=== PATIENT | male | born 2000 | race Caucasian/White ===

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

== ENCOUNTER 2023-01-28 00:01 | Emergency (ER) | payer BC, MEDICAID, SELFPAY ==
[2023-01-28 00:03] VITALS: BP 135/92; PULSE 108; RESP 24; O2SAT 98; BMI 18.1
--- NOTE | 2023-01-28 00:08 | ECG_ITS ---
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 Measurements Intervals [place] Rate: 110 P: 78 [place]: 142 QRS: 91 QRSD: 94 T: 50 QT: 308 QTc: 417 Interpretive Statements SINUS TACHYCARDIA BORDERLINE RIGHT AXIS DEVIATION [QRS AXIS > 90] INCOMPLETE RIGHT BUNDLE BRANCH BLOCK [90+ ms QRS DURATION, TERMINAL R IN V1/V2, 40+ ms S IN I/aVL/V4/V5/V6] ABNORMAL RHYTHM ECG No previous ECG available for comparison Electronically Signed On 01-28-2023 11:41:55 CDT by Edmund Narvaez M.D. [email or web address]
[2023-01-28 00:18] VITALS: BP 135/92; PULSE 105; RESP 25; O2SAT 98
[2023-01-28 00:18] LABS: Basophils % 0.7 %; Eosinophils # 0.1 10^3/uL (0.0-0.8); Eosinophils % 1.5 %; Hematocrit 49.3 % (42.0-52.0); Hemoglobin 16.4 g/dL (11.7-16.6); Lymphocytes # 1.6 10^3/uL (1.5-6.5); Lymphocytes % 34.1 %; Mean Corpuscular HGB Conc 33.3 g/dL (30.0-36.0); Mean Corpuscular Hemoglobin 28.9 pg (28.0-34.0); Mean Corpuscular Volume 86.8 fl (80-94); Mean Platelet Volume 9.8 fL (7.4-10.4); Monocytes # 0.4 10^3/uL (0.2-0.9); Monocytes % 9.1 %; Neutrophils % 54.2 %; Nucleated Red Blood Cells % 0 %; Platelet Count 148 10^3/cmm (130-400); Red Blood Count 5.68 10^6/uL (4.1-5.3); Red Cell Distribution Width 13.1 % (12.1-15.1); White Blood Count 4.6 10^3/uL (4.5-13.0)
--- NOTE | 2023-01-28 00:20 | ED_ITS ---
HPI - Seizure General: Chief Complaint: Seizure Stated Complaint: SEIZURE Time Seen by Provider: 01/28/23 00:07 History of Present Illness: HPI Narrative: 22-year-old male patient comes in today with a seizure-like episode for approximately 3 minutes. Patient does have a history of epilepsy. Patient's girlfriend reports that he had had a fever earlier this afternoon and they just got back from getting a thermometer from the store when he had a seizure. Patient does not take any routine medications. Patient had in the past been on divalproex for his seizure episodes. Patient stopped taking medication because he did not want to take it anymore. No smoking drinking or alcohol was been reported. Patient appears nontoxic. Patient is somnolent at this time due to recent injection of Versed by EMS. Patient's girlfriend is in route. Patient shakes his head yes and no to questions. Girlfriend states he had tripped and hit his head yesterday and has a scab to the left parietal scalp. Review of Systems General: Reports: 10 or more systems reviewed and unremarkable except in HPI and below Neuro: Reports: seizure-like activity PFS ED PFSH: Social History Smoking and tobacco status: never smoked Alcohol intake: never Substance/Drug Use: never Physical Exam Const: COMMON NORMALS: alert HENMT: COMMON NORMALS: normocephalic HEAD & SCALP: normocephalic MOUTH: Normal oral and palatal mucosa present Eye: GENERAL EYE: appearance normal, both eyes and all related structures Neck/C-Spine: COMMON NORMALS: full ROM Resp: COMMON NORMALS: normal respiratory effort and clear to auscultation bilaterally AUSCULTATION: clear to auscultation bilaterally Cardio: COMMON NORMALS: regular rate and regular rhythm RATE: regular rate RHYTHM: regular rhythm GI: COMMON NORMALS: Soft to palpation and non-tender PALPATION: Yes Soft to palpation : COMMON NORMALS: Yes no CVA tenderness BLADDER/KIDNEY EXAM: Yes no CVA tenderness Back/Pelvis: COMMON NORMALS: no CVA tenderness Extremity: COMMON NORMALS: normal to inspection Neuro: RUTHANN COMA SCALE: document GCS findings [place] coma scale eye opening: Spontaneous [place] coma scale verbal response: Confused Ruthann coma scale motor response: Localising Ruthann coma scale total score: 13 SENSORIUM/ORIENTATION: Yes alert OTHER: Patient is withdrawing to pain Skin: COMMON NORMALS: turgor normal GENERAL SKIN EXAM: turgor normal Course ED course: 0150, patient is alert and oriented now. Patient responds appropriate questions. Patient stopped Depakote about 6 months ago due to wanting to be off medications. Last seizure was 2 years ago. Vital Signs: Vital signs: Vital Signs Pulse Rate 93 01/28/23 01:24 Respiratory Rate 16 01/28/23 01:24 Blood Pressure 130/87 01/28/23 01:24 Pulse Oximetry 96 01/28/23 01:24 Oxygen Delivery Me thod Room Air 01/28/23 01:24 MDM - Seizure MDM Narrative Medical decision making narrative: 22-year-old male patient comes in today with 2 seizure episodes today. First seizure episode was about 3 minutes as reported by significant other. Second seizure was later in the day after returning home from a store to get a thermometer due to some temperature. Ambulance was called after the second seizure. Patient was given 1 dose of Versed in route to the ER. On arrival patient was somnolent and only answering yes or no to questions. Respirations were even lungs were clear to auscultation. Patient was afebrile. Differential diagnosis includes epilepsy, breakthrough seizure, out of medication, viral illness. Suspected possible illness causing fever and lowering threshold for seizure. Patient was given 1000 mg of Keppra for further alleviation of seizures. Laboratory values noted no significant abnormalities. Strep, flu, and COVID 19 were all negative. Urinalysis was negative. Suspect patient might have a viral illness although no severe illness is noted. Patient was medicated with 250 mg of his Depakote and will be restarted on his routine dosing. Patient was recommended to follow-up with his neurologist and instructed not to drive for the next 6 months and be cleared by neurology. Patient stated understanding. Lab Data 01/28/23 00:14 01/28/23 00:14 Labs: Radiology Impressions Head CT 01/28/23 00:20 IMPRESSION: No acute intracranial abnormality. Laboratory Results WBC 4.6 10^3/uL (4.5-13.0) 01/28/23 00:14 RBC 5.68 10^6/uL (4.1-5.3) H 01/28/23 00:14 Hgb 16.4 g/dL (11.7-16.6) 01/28/23 00:14 Hct 49.3 % (42.0-52.0) 01/28/23 00:14 MCV 86.8 fl (80-94) 01/28/23 00:14 MCH 28.9 pg (28.0-34.0) 01/28/23 00:14 MCHC 33.3 g/dL (30.0-36.0) 01/28/23 00:14 RDW 13.1 % (12.1-15.1) 01/28/23 00:14 Plt Count 148 10^3/cmm (130-400) 01/28/23 00:14 MPV 9.8 fL (7.4-10.4) 01/28/23 00:14 Neut % (Auto) 54.2 % 01/28/23 00:14 Lymph % (Auto) 34.1 % 01/28/23 00:14 Stephens % (Auto) 9.1 % 01/28/23 00:14 Eos % (Auto) 1.5 % 01/28/23 00:14 Baso % (Auto) 0.7 % 01/28/23 00:14 Neut # (Auto) 2.50 10^3/uL (1.8-8.0) 01/28/23 00:14 Lymph # (Auto) 1.6 10^3/uL (1.5-6.5) 01/28/23 00:14 Stephens # (Auto) 0.4 10^3/uL (0.2-0.9) 01/28/23 00:14 Eos # (Auto) 0.1 10^3/uL (0.0-0.8) 01/28/23 00:14 Baso # (Auto) 0.0 10^3/uL (0.0-0.1) 01/28/23 00:14 Nucleated RBC % (auto) 0 % 01/28/23 00:14 Nucleated RBCs # 0.0 /100WBC 01/28/23 00:14 Sodium 140 mmol/L (136-145) 01/28/23 00:14 Potassium 3.8 mmol/L (3.5-5.1) 01/28/23 00:14 Chloride 102 mmol/L (98-107) 01/28/23 00:14 Carbon Dioxide 20 mmol/L (22-29) L 01/28/23 00:14 Anion Gap 21.8 (5-19) H 01/28/23 00:14 BUN 12 mg/dL (6-20) 01/28/23 00:14 Creatinine 1.1 mg/dL (0.7-1.2) 01/28/23 00:14 GFR Calculation 85.3 mL/min (90-130) L 01/28/23 00:14 Glucose 144 mg/dL (65-115) H 01/28/23 00:14 Calculated Osmolality 292 mOsm/kg (285-295) 01/28/23 00:14 Calcium 9.1 mg/dL (8.5-10.5) 01/28/23 00:14 Total Bilirubin 0.3 mg/dL (0.15-1.2) 01/28/23 00:14 AST 20 U/L (0-40) 01/28/23 00:14 ALT 11 U/L (0-41) 01/28/23 00:14 Alkaline Phosphatase 78 U/L (40-130) 01/28/23 00:14 Total Protein 7.0 g/dL (6.6-8.7) 01/28/23 00:14 Albumin 4.3 g/dL (3.5-5.2) 01/28/23 00:14 Globulin 2.7 g/dL (1.3-4.6) 01/28/23 00:14 Urine Color Yellow (Yellow) 01/28/23 01:21 Urine Appearance Clear (CLEAR) 01/28/23 01:21 Urine pH 5 (5-7) 01/28/23 01:21 Ur Specific [place] 1.020 (1.005-1.030) 01/28/23 01:21 Urine Protein Trace (Negative) 01/28/23 01:21 Urine Glucose (UA) Norm (Normal) 01/28/23 01:21 Urine Ketones 1+ (Negative) H 01/28/23 01:21 Urine Blood Neg (Negative) 01/28/23 01:21 Urine Nitrate Negative (Negative) 01/28/23 01:21 Urine Bilirubin Neg (Negative) 01/28/23 01:21 Urine Urobilinogen Neg mg/dL (Negative) 01/28/23 01:21 Ur Leukocyte Esterase Negative (Negative) 01/28/23 01:21 Urine RBC None /hpf (0-2) 01/28/23 01:21 Urine WBC None /hpf (0-5) 01/28/23 01:21 Ur Squamous Epith Cells None /hpf (0-5) 01/28/23 01:21 Amorphous Sediment Not Reportable 01/28/23 01:21 Urine Bacteria None /hpf (NONE) 01/28/23 01:21 Salicylates < 0.3 mg/dL (3-10) L 01/28/23 00:14 Urine Opiates Screen Negative ng/mL (Negative) 01/28/23 01:21 Acetaminophen < 5.0 ug/mL (10-30) L 01/28/23 00:14 Ur Barbiturates Screen Negative ng/mL (Negative) 01/28/23 01:21 Valproic Acid 2.8 ug/mL (50-100) L 01/28/23 00:14 Ur Phencyclidine Scrn Negative ng/mL (Negative) 01/28/23 01:21 Ur Amphetamines Screen Negative ng/mL (Negative) 01/28/23 01:21 U Benzodiazepines Scrn Negative ng/mL (Negative) 01/28/23 01:21 Urine Cocaine Screen Negative ng/mL (Negative) 01/28/23 01:21 U Marijuana (THC) Screen Negative ng/mL (Negative) 01/28/23 01:21 Ethyl Alcohol < 10 mg/dL (0-10) 01/28/23 00:14 Influenza Type A Ag negative (Negative) 01/28/23 01:06 Influenza Type B Ag negative (Negative) 01/28/23 01:06 SARS-CoV-2 Ag (Rapid) negative (Negative) 01/28/23 01:06 Group A Strep Rapid Negative (Negative) 01/28/23 01:06 EKG Data EKG 1: EKG interpretation date: 01/28/23 EKG interpretation time: 00:27 Prior EKG tracings: not available for review Interpretation: EKG shows a sinus tachycardia with a regular rate at [address] elevation or ectopy is noted. No prior exam was available for comparison. Computer generated interpretation: Sinus tachycardia, borderline right axis deviation, incomplete right bundle block. Discharge Plan Discharge Patient Disposition: Home Clinical Impression: Epileptic seizure Qualifiers: Epilepsy type: unspecified Intractability: not intractable Status epilepticus: without status epilepticus Qualified Code(s): G40.909 - Epilepsy, unspecified, not intractable, without status epilepticus Condition: Stable Prescriptions: Continued Depakote 250 mg tablet,delayed release (DR/EC) 250 mg PO BID Qty: 60 0RF No Action amitriptyline 25 mg tablet 25 mg PO DAILY Nurtec ODT 75 mg tablet,disintegrating PO Discharge Orders: Discharge ED (Routine); Ordered 01/28/23 Ordered By: Yousuf Klein Discharge Diet: Usual diet Discharge Activity: Increase activity as tolerated Patient Instructions: Epilepsy (ED) Activity Restrictions/Additional Instructions: Drink plenty of water and fluids. Use acetaminophen or ibuprofen as needed for fever. Follow-up with primary care for further instructions. Follow-up with neurologist relating seizure disorder. Restart Depakote ER as directed. Return to ER for new concerns. Coding Level of Care Code ED Network Management Specialist for Hernandez Gresham
--- NOTE | 2023-01-28 00:20 | CTR_ITS ---
PROCEDURE INFORMATION: Exam: CT Head Without Contrast Exam date and time: 01/28/2023 12:36 AM Age: 22 years old Clinical indication: Injury or trauma; Other: Seizure; Additional info: Seizure, history of head injury TECHNIQUE: Imaging protocol: Computed tomography of the head without contrast. Radiation optimization: All CT scans at this facility use at least one of these dose optimization techniques: automated exposure control; mA and/or kV adjustment per patient size (includes targeted exams where dose is matched to clinical indication); or iterative reconstruction. REPORTING DATA: Count of CT and Cardiac NM exams in prior 12 months: This patient has received 0 known CTs and 0 known cardiac nuclear medicine studies in the 12 months prior to the current study. COMPARISON: No relevant prior studies available. RADIATION DOSE METRICS: Total DLP (mGy-cm): 1132.68 FINDINGS: Brain: Normal. No hemorrhage. Unremarkable white matter. No mass effect. Cerebral ventricles: No ventriculomegaly. Paranasal sinuses: Visualized sinuses are unremarkable. No fluid levels. Mastoid air cells: Visualized mastoid air cells are well aerated. Bones/joints: Unremarkable. No acute fracture. Soft tissues: Unremarkable. CT/CT head wo con* [id number] IMPRESSION: No acute intracranial abnormality.
[2023-01-28 00:41] LABS: Alanine Aminotransferase 11 U/L (0-41); Albumin Level 4.3 g/dL (3.5-5.2); Alkaline Phosphatase 78 U/L (40-130); Anion Gap 21.8 (5-19); Aspartate Amino Transferase 20 U/L (0-40); Blood Urea Nitrogen 12 mg/dL (6-20); Calcium 9.1 mg/dL (8.5-10.5); Carbon Dioxide 20 mmol/L (22-29); Chloride 102 mmol/L (98-107); Globulin 2.7 g/dL (1.3-4.6); Glomerular Filtration Rate 85.3 mL/min (90-130); Glucose 144 mg/dL (65-115); Osmolality Calculated 292 mOsm/kg (285-295); Potassium 3.8 mmol/L (3.5-5.1); Sodium 140 mmol/L (136-145); Total Bilirubin 0.3 mg/dL (0.15-1.2); Valproic Acid Level 2.8 ug/mL (50-100)
[2023-01-28] MEDS: sodium chloride 0.9% 1,000 ML 999 ML IV (00:43)
[2023-01-28 01:11] LABS: Acetaminophen < 5.0 ug/mL (10-30); Alcohol Level < 10 mg/dL (0-10); Salicylate < 0.3 mg/dL (3-10)
[2023-01-28 01:24] VITALS: BP 130/87; PULSE 93; RESP 16; O2SAT 96
[2023-01-28 01:27] LABS: Rapid Strep A Test Negative (Negative)
[2023-01-28 01:32] LABS: Influenza A by IFA negative (Negative); Influenza B by IFA negative (Negative)
[2023-01-28 01:33] LABS: SARS Covid-2 Antigen negative (Negative)
[2023-01-28 01:38] LABS: Add Urine Culture? No; Add Urine Microscopic? YES; Bilirubin Urine Neg (Negative); Blood Urine Neg (Negative); Glucose Urine UA Norm (Normal); Ketones Urine 1+ (Negative); Leukocyte Esterase Urine Negative (Negative); Nitrate Urine Negative (Negative); Protein Urine Trace (Negative); Urine Appearance Clear (CLEAR); Urine Color Yellow (Yellow); Urobilinogen Urine Neg (Negative); pH Urine 5 (5-7)
[2023-01-28 01:41] LABS: Amphetamines Screen Urine Negative (Negative); Barbiturates Screen Urine Negative (Negative); Benzodiazepines Screen Urine Negative (Negative); Cocaine Screen Urine Negative (Negative); Opiate Screen Urine Negative (Negative); PCP Screen Urine Negative (Negative); THC Screen Urine Negative (Negative)
[2023-01-28 01:54] VITALS: BP 115/68; PULSE 88; RESP 21
[2023-01-28 01:55] VITALS: BP 115/68; PULSE 85; RESP 23
[2023-01-28] MEDS: divalproex ER 250 mg Tablet (24H) PO (01:57)
--- NOTE | 2023-01-28 09:03 | DCPLANNER ---
Addendum entered by Dionna Fitzpatrick 02/17/23 12:31: Patient did attend appointment Addendum entered by Dionna Fitzpatrick 02/01/23 13:42: Patient has a follow up appointment scheduled for February at 1:[address] Delong at neurology. Original Note: manager telemetry had message to schedule a follow up appointment for patient with neurology. manager telemetry sent patients information to the front office staff at neurology. Patients information will be printed and reviewed. Clinic will call patient with appointment information.
--- NOTE | 2023-01-28 13:34 | DCPLANNER ---
delicatessen department manager called patient due no primary care physician - was told that patient has a primary care physician.
== END 2023-01-28 02:10 | disposition home or self-care (01) ==
PROVIDERS: Emergency Provider Nurse Practitioner Family; PCP Nurse Practitioner Family
DX: G40.909 Epilepsy, unspecified, not intractable, without status epilepticus (principal); Z20.822 Contact with and (suspected) exposure to COVID-19
CPT/HCPCS: 70450; 80053; 80164; 80306; 80307; 81001; 85025; 87081; 87426; 87804; 87880; 93005; 96365; 99285; J1953; J7030

== ENCOUNTER 2023-02-22 12:08 | Outpatient (CLI) | payer BC, MEDICAID, SELFPAY ==
[2023-02-22 13:40] LABS: Valproic Acid Level 68.3 ug/mL (50-100)
== END 2023-02-22 12:09 | disposition home or self-care (01) ==
LOC: LAB 12:13
PROVIDERS: PCP Nurse Practitioner Family; Visit Provider Psychiatry & Neurology Neurology
DX: R56.9 Unspecified convulsions (principal)
CPT/HCPCS: 36415; 80164

== ENCOUNTER 2024-08-12 20:14 | Emergency (ER) | payer BC, MEDICAID, SELFPAY ==
[2024-08-12 20:35] VITALS: BP 145/102; PULSE 97; RESP 24; TEMP 37.9; O2SAT 98
[2024-08-12] MEDS: divalproex ER 500 mg Tablet (24H) 1000 MG PO (20:48)
[2024-08-12 20:53] LABS: Rapid Strep A Test Negative (Negative)
--- NOTE | 2024-08-12 21:02 | ED_ITS ---
HPI - URI/Sore Throat General: Chief Complaint: Upper Respiratory Infection Stated Complaint: Fever\Headache\Sore Throat Time Seen by Provider: 08/12/24 20:36 History of Present Illness: 23-year-old male patient with a history of seizure disorder. He got sick around 3 PM today says. Is been running temperatures up to 102. He has chills, aches, sore throat to some degree, congestion, headache. No GI symptoms as yet. He has been out of his Depakote for the last 3 days for his seizure disorder also. Related Data Home Medications Medication Instructions Recorded Confirmed rimegepant 75 mg disintegrating mg PO 07/17/22 04/29/24 tablet (Nurtec ODT) Previous Rx's Medication Instructions Recorded triamcinolone acetonide 0.1 % 1 applic topical TID PRN 04/29/24 topical cream irritation #30 grams divalproex 500 mg tablet,extended 500 mg PO BID #60 tabs 08/12/24 release 24 hr (Depakote ER) oseltamivir 75 mg capsule (Tamiflu) 75 mg PO BID 5 days #10 caps 08/12/24 Allergies Allergy/AdvReac Type Severity Reaction Status Date / Time cefaclor [From [facility]] Allergy Unknown Verified 04/29/24 13:10 cephalexin Allergy Unknown Verified 04/29/24 13:10 Penicillins Allergy Unknown Verified 04/29/24 13:10 [facility] ED PFSH: Medical History Psychiatric care Social History Smoking and tobacco/nicotine status: unknown if used tobacco/nicotine Alcohol intake: never Substance/Drug Use: never Physical Exam Const: COMMON NORMALS: no acute distress GENERAL APPEARANCE: cooperative; not ill appearing and not frail appearing HENMT: COMMON NORMALS: normocephalic, atraumatic, TM's normal bilaterally and Normal external nose present HEAD & SCALP: normocephalic and atraumatic FACE & SINUS: normal facial exam and face symmetric NOSE: Normal external nose present TYMPANIC MEMBRANE: TM's normal bilaterally THROAT: posterior oropharynx abnormal edema and erythema; no cobblstoning and no exudates Eye: COMMON NORMALS: Equal, round and reactive pupils present and EOMs intact bilaterally PUPIL: Yes Equal, round and reactive pupils present Neck/C-Spine: GENERAL: Yes trachea midline Chest: CHEST: Yes Symmetrical chest wall rise Resp: COMMON NORMALS: normal respiratory effort, No retractions, No use of a ccessory muscles and clear to auscultation bilaterally AUSCULTATION: clear to auscultation bilaterally Cardio: COMMON NORMALS: regular rate and regular rhythm RATE: regular rate RHYTHM: regular rhythm GI: COMMON NORMALS: Normal to inspection, nondistended, normoactive bowel sounds present Extremity: COMMON NORMALS: no pedal edema Neuro: RUTHANN COMA SCALE: document GCS findings [place] coma scale eye opening: Spontaneous Ruthann coma scale verbal response: Orientated [place] coma scale motor response: Obey commands Ruthann coma scale total score: 15 SENSORY EXAM: Yes extremities (intact) Psych: COMMON NORMALS: speech normal SPEECH: Yes normal speech Skin: COMMON NORMALS: no rashes or lesions noted GENERAL SKIN EXAM: no rashes or lesions noted Course Vital Signs: Vital signs: Vital Signs Temperature 100.3 F H 08/12/24 20:35 Pulse Rate 99 08/12/24 22:24 Respiratory Rate 16 08/12/24 22:24 Blood Pressure 122/67 08/12/24 22:24 Pulse Oximetry 97 08/12/24 22:24 Oxygen Delivery Me thod Room Air 08/12/24 21:43 MDM - URI/Sore Throat Medical Decision Making Patient is flu a positive. He will be given a prescription for Tamiflu. Will refill his Depakote. Strict control of temperature given history of seizure. Return for any worsening symptoms. Lab Data Laboratory Results Coronavirus (PCR) Negative (Negative) 08/12/24 20:42 Influenza A (PCR) Positive (Negative) 08/12/24 20:42 Influenza Type B (PCR) Negative (Negative) 08/12/24 20:42 RSV (PCR) Negative (Negative) 08/12/24 20:42 Group A Strep Rapid Negative (Negative) 08/12/24 20:42 No radiology studies performed this visit Discharge Plan Discharge Patient Disposition: Home Clinical Impression: Influenza Condition: Stable Prescriptions: New oseltamivir [Tamiflu] 75 mg capsule 75 mg PO BID 5 Days Qty: 10 0RF Continued divalproex [Depakote ER] 500 mg tablet extended release 24 hr 500 mg PO BID Qty: 60 0RF No Action triamcinolone acetonide 0.1 % cream 1 applic topical TID PRN (Reason: irritation) Qty: 30 0RF Nurtec ODT 75 mg tablet,disintegrating PO Discharge Orders: Discharge ED (Routine); Ordered 08/12/24 Ordered By: Mk Lerner Referrals: Jessica Villa FNP [Primary Care Provider] - 1-3 days Patient Instructions: Influenza (ED), Opioid Safety, Pain Management Activity Restrictions/Additional Instructions: Watch your temperature closely, measure at least 4 times a day for the next 48 hours. Treat accordingly with alternating doses of Tylenol or ibuprofen up to every 3 hours. Plenty of oral liquids. Take your seizure medicine as directed. Return for any problems. Coding Level of Care Code ED Psychic Reader for Hernandez Gresham
[2024-08-12 21:39] LABS: Covid PCR NEGATIVE (Negative); Influenza A POSITIVE (Negative); Influenza B NEGATIVE (Negative); Respiratory Syncytial Virus Ce NEGATIVE (Negative)
[2024-08-12 21:43] VITALS: BP 129/71; PULSE 88; RESP 16; O2SAT 96
[2024-08-12] MEDS: ibuprofen 200 mg Tablet 400 MG PO (22:06)
[2024-08-12 22:24] VITALS: BP 122/67; PULSE 99; RESP 16; O2SAT 97
== END 2024-08-12 22:23 | disposition home or self-care (01) ==
PROVIDERS: Nurse Practitioner Family; Emergency Provider Emergency Medicine; PCP Nurse Practitioner Family
DX: J10.1 Influenza due to other identified influenza virus with other respiratory manifestations (principal); Z11.52 Encounter for screening for COVID-19
CPT/HCPCS: 87081; 87637; 87880; 99283